=== PATIENT | male | born 1980 | race Caucasian/White ===

== ENCOUNTER 2019-08-28 19:07 | Emergency (ER) | payer MEDICARE, MEDICAID, SELFPAY ==
[2019-08-28 19:20] VITALS: BP 112/73; PULSE 85; RESP 17; TEMP 36.8; O2SAT 99; BMI 22.1
[2019-08-28 21:01] LABS: Urine Appearance Cloudy (CLEAR); Urine Color Dark Yellow (Yellow)
[2019-08-28 21:02] LABS: Add Urine Microscopic? YES; Bilirubin Urine Neg (NEGATIVE); Blood Urine 3+ (Negative); Glucose Urine UA Norm (Normal); Ketones Urine Negative (Negative); Leukocyte Esterase Urine Negative (Negative); Nitrate Urine Negative (Negative); Protein Urine Neg (Negative); Urobilinogen Urine Norm (Negative); pH Urine 7 (5-7)
[2019-08-28 21:03] LABS: Add Urine Culture? Yes; Bacteria Urine 4+; Mucus Urine TRACE; RBC Urine TOO NUMEROUS TO CNT /hpf (0-2)
--- NOTE | 2019-08-28 21:24 | ED_ITS ---
Entered by Angelica Guaman, acting as scribe for Meme Reyes HPI - Male Genitourinary General: Chief complaint: Urogenital-Male Stated complaint: blood in urine/groin pain Time Seen by Provider: 08/28/19 21:24 Source: patient Mode of arrival: ambulatory Limitations: no limitations History of Present Illness: HPI Narrative: 38 yo Male presents to ED with complaint of right side flank pain. Pt states that when he woke up he urinated and there was blood in his urine. Pt states that he has not had any fever. MD Complaint: other (flank pain/hematuria) Onset (ago): hour(s) Duration: constant Location: right flank Severity scale (1-10): 8 Quality: aching Relieving factors: none Exacerbating factors: urination Associated symptoms: Reports hematuria and nausea; Deny fevers/chills or vomiting Review of Systems General: Reports: other (negative unless marked) Const: Denies: fever, chills, body aches, fatigue, malaise or diaphoresis Eyes: Denies: change in vision or blurry vision ENMT: Denies: throat pain, painful swallowing, hoarseness, ear pain, ear discharge, Change in hearing or nasal discharge Card: Denies: chest pain, palpitations, irregular heart rhythm, syncope, pre- syncope, shortness of breath on exertion or shortness of breath when lying down Resp: Denies: shortness of breath, productive cough, non-productive cough, wheezing, coughing up blood or chest congestion GI: Reports: nausea; Denies: vomiting : Reports: flank pain and blood in urine Musc: Denies: neck pain, back pain, extremity pain, extremity swelling, joint pain, joint swelling, joint warmth or joint stiffness Skin/Breast: Denies: rash, skin tenderness or yellow skin Neuro: Denies: headache, numbness in extremities, weakness in extremities, changes in sensation, lack of coordination, difficulty walking, dizziness, vertigo or confusion Endo: Denies: excessive thirst, tired all the time, cold intolerance, excessive sweating, flushing or hot flashes Rishabh/Lymph: Denies: easy bruising, easy bleeding, petechiae or enlarged lymph nodes All/Imm: Denies: hives, throat swelling, tongue swelling, facial swelling or acute wheezing PFS ED PFSH: Surgical History (Updated 08/28/19 @ 21:30 by Angelica Guaman) History of vasectomy Social History Smoking and tobacco status: current every day smoker Physical Exam Const: COMMON NORMALS: no apparent distress, oriented x3, no limitations, healthy appearing and well nourished EXAM LIMITATIONS: no altered mental status GENERAL APPEARANCE: cooperative, well kempt and well developed ORIENTATION/CONSCIOUSNESS: Yes awake HENMT: COMMON NORMALS: normocephalic, head/scalp atraumatic, hearing grossly normal bilaterally, external ears normal, EAC's normal, external nose normal and moist oral mucous membranes HEAD & SCALP: normal to inspection, normocephalic and atraumatic FACE & SINUS: normal facial exam and face symmetric NOSE: external nose normal and nares normal EXTERNAL EAR: Yes external ears normal EXTERNAL AUDITORY CANAL: EAC's normal MOUTH: oral and palatal mucosa normal and tongue normal Eye: COMMON NORMALS: PERRL, EOMs intact bilaterally, conjunctivae normal and no scleral icterus GENERAL EYE: normal appearance of both eyes and normal light reflex CONJUNCTIVA: Yes conjunctivae normal SCLERA: sclerae normal CORNEA: Yes corneas normal PUPIL: Yes PERRL DIRECT OPHTHALMOSCOPY: Yes normal light reflex Neck/C-Spine: COMMON NORMALS: full ROM, no lymphadenopathy, supple, no meningeal signs and no JVD GENERAL: Yes normal visual inspection and Yes trachea midline CERVICAL SPINE: Yes cervical ROM normal Chest: COMMONS NORMALS: inspection of chest normal and palpation of chest normal Resp: COMMON NORMALS: normal respiratory effort, no retractions, no use of accessory muscles and clear to auscultation bilaterally EFFORT & INSPECTION: Yes able to speak in complete sentences AUSCULTATION: clear to auscultation bilaterally Cardio: COMMON NORMALS: no JVD, regular rate, regular rhythm, S1 normal heart sound, S2 normal heart sound, no gallops, no clicks, no murmurs and no rub JUGULAR VENOUS DISTENTION: no JVD RATE: regular rate RHYTHM: regular rhythm HEART SOUNDS: S1 normal and S2 normal GI: COMMON NORMALS: soft to palpation, non-tender, no hepatosplenomegaly and no masses INSPECTION: Yes normal to inspection PALPATION: Yes soft and Yes no hepatosplenomegaly : COMMON NORMALS: Yes no CVA tenderness BLADDER/KIDNEY EXAM: Yes no CVA tenderness Back/Pelvis: COMMON NORMALS: no CVA tenderness, thoracic and lumbar spine normal to inspection, no thoracic nor lumbar tenderness and thoraco-lumbar ROM normal Extremity: COMMON NORMALS: normal to inspection, full ROM, normal capillary refill, no joint enlargement, no clubbing, cyanosis or edema and no calf tenderness Neuro: COMMON NORMALS: oriented x3, CN's II-XII intact bilaterally, moves all extremities, no focal motor deficits and no sensory deficits noted MENINGEAL SIGNS: Yes no meningeal signs Psych: COMMON NORMALS: mental status grossly normal, thought process normal, cooperative, affect normal, speech normal and activity/motor behavior normal APPEARANCE: Yes well kempt SPEECH: Yes normal speech THOUGHT PROCESS: normal thought process Skin: COMMON NORMALS: no rashes or lesions noted, skin turgor normal, no jaundice, no petechiae and no mottling GENERAL SKIN EXAM: no rashes or lesions noted and turgor normal Course Vital Signs: Vital signs: Vital Signs Temperature 98.2 F 08/28/19 19:20 Pulse Rate 85 08/28/19 19:20 Respiratory Rate 16 08/28/19 22:11 Blood Pressure 112/73 08/28/19 19:20 Pulse Oximetry 99 08/28/19 19:20 MDM - Male MDM Narrative: Medical decision making narrative: Mr. Arroyo is a nice 38-year-old male who comes in for flank pain and hematuria. His flank pain is almost completely resolved and his hematuria has cleared. There is evidence of stones in his kidneys but nothing in his ureters or bladder. It is possible he has passed a small stone through. From further history it sounds as though he is done this at home before without any evaluation by Dr. I have informed him though he will need to follow-up with Dr. Miguel and he agrees to do so. He agrees to return should he develop fever, vomiting or increased pain. At this time he is ready to go home. Lab Data: Attestation: I reviewed the patient's lab results. Labs: Lab Results 08/28/19 08/28/19 08/28/19 Range/Units 19:17 21:54 21:54 WBC 8.0 (4.0-10.0) 10^3/ uL RBC 4.76 (4.1-5.3) 10^6/u L Hgb 14.5 (11.7-16.6) g/dL Hct 44.5 (42.0-52.0) % MCV 93.5 (80-94) fL MCH 30.5 (28.0-34.0) pg MCHC 32.6 (30.0-36.0) g/dL RDW 12.5 (12.1-15.1) % Plt Count 240 (130-400) 10^3/c mm MPV 9.5 (7.4-10.4) fL Neut % (Auto) 57.6 % Lymph % (Auto) 31.9 % [place] % (Auto) 7.2 % Eos % (Auto) 2.6 % Baso % (Auto) 0.5 % Neut # (Auto) 4.6 (1.8-7.7) 10^3/u L Lymph # (Auto) 2.6 (0.8-4.8) 10^3/u L [place] # (Auto) 0.6 (0.2-0.9) 10^3/u L Eos # (Auto) 0.2 (0.0-0.8) 10^3/u L Baso # (Auto) 0.0 (0.0-0.1) 10^3/u L Nucleated RBC % (a uto) 0 % Nucleated RBCs # 0.0 /100WBC Sodium 140 (136-145) mmol/L Potassium 4.3 (3.5-5.1) mmol/L Chloride 99 (98-107) mmol/L Carbon Dioxide 30 H (22-29) mmol/L Anion Gap 15.3 (5-19) BUN 20 (6-20) mg/dL Creatinine 1.1 (0.7-1.2) mg/dL GFR Calculation 74.9 L (90-130) mL/min Glucose 103 (65-115) mg/dL Calculated Osmolal ity 287 (285-295) mOsm/k g Calcium 10.2 (8.5-10.5) mg/dL Total Bilirubin 0.4 (0.15-1.2) mg/dL AST 23 (0-40) U/L ALT 33 (0-41) U/L Alkaline Phosphata se 58 (40-130) IU/L Total Protein 6.8 (6.6-8.7) g/dL Albumin 4.3 (3.5-5.2) g/dL Globulin 2.5 (1.3-4.6) g/dL Lipase 25 (13-60) U/L Urine Color Dark yellow (Yellow) Urine Appearance Cloudy (CLEAR) Urine pH 7 (5-7) Ur Specific Gravit y 1.010 (1.005-1.030) Urine Protein Neg (Negative) Urine Glucose (UA) Norm (Normal) Urine Ketones Negative (Negative) Urine Blood 3+ H (Negative) Urine Nitrate Negative (Negative) Urine Bilirubin Neg (NEGATIVE) Urine Urobilinogen Norm (Negative) mg/dL Ur Leukocyte Mela ase Negative (Negative) Urine RBC Too numerous to c nt H (0-2) /hpf Urine WBC 5-10 H (0-5) /hpf Ur Squamous Epith Cells None (0-5) Urine Bacteria 4+ H (NONE) Urine Mucus Trace Imaging Data: CT Abd/Pel: Radiologist's impression: [place] [id number] CT Scan Report Signed Patient: Joycelyn Arroyo #: [id number] : 1980Acct#:[id number] Age/Sex: 38 / MADM Date: 08/28/19 [facility] Attending Dr: Ordering Provider/Ordering MD: Meme Reyes DO Date of Service: 08/28/19 Procedure(s): CT kidney stone 38795 Accession Number(s): [id number] Report Number: [id number] PROCEDURE INFORMATION: Exam: CT Abdomen And Pelvis Without Contrast Exam date and time: 08/28/2019 9:28 PM Age: 38 years old Clinical indication: Abdominal pain; Right; Patient HX: Gross hematuria, RT flank pain x1 day, HX of kidney stones; Additional info: Flank/abdominal pain TECHNIQUE: Imaging protocol: Computed tomography of the abdomen and pelvis without contrast. Total DLP: 626.94 mGy-cm Radiation optimization: All CT scans at this facility use at least one of these dose optimization techniques: automated exposure control; mA and/or kV adjustment per patient size (includes targeted exams where dose is matched to clinical indication); or iterative reconstruction. COMPARISON: No relevant prior studies available. FINDINGS: Lungs: There are scattered calcified granulomas in both lung bases. Liver: The liver is normal. Gallbladder and bile ducts: The gallbladder is normal. There is no biliary dilation. Pancreas: The pancreas is unremarkable. Spleen: The spleen is unremarkable. Adrenals: The adrenal glands are unremarkable. Kidneys and ureters: Nonobstructive stones are seen in both kidneys. There is no hydronephrosis or ureteral dilation. Stomach and bowel: The stomach is unremarkable. The small bowel is nondilated. There is no sign of inflammation. Minimal distal descending colonic diverticulosis without evidence of diverticulitis. Appendix: The appendix is normal. Intraperitoneal space: There is no free air or significant intraperitoneal free fluid. Vasculature: The aorta is unremarkable. There is no aneurysm. Lymph nodes: There is no lymphadenopathy in the retroperitoneum, mesentery, pelvis or inguinal regions. Bladder: The urinary bladder is unremarkable. Reproductive: There is minimal central calcification in the prostate which is at the upper limit of normal in size. Bones/joints: The lumbar spine, pelvis and hips are unremarkable. Soft tissues: The abdominal wall is intact. CT/CT kidney stone 28740 IMPRESSION: Bilateral nonobstructive nephrolithiasis. No ureteral or bladder stones. Radiation Dose CTDIVOL = (mGy): DLP = 626.94 (mGy-cm) Dictated By:Ramin Moses MD Signed By:Ramin Mosesigned Date/Time:08/28/192206 DD/ 05 Discharge Plan Discharge Patient Disposition: Home, Self-Care Clinical Impression: Urinary tract infection Qualifiers: Urinary tract infection type: acute cystitis Hematuria presence: with hematuria Qualified Code(s): N30.01 - Acute cystitis with hematuria Condition: Stable Prescriptions: New Cipro 500 mg tablet 500 mg PO BID Qty: 20 RF: 0 Discharge Orders: Discharge Order (Routine); Ordered 08/28/19 Ordered By: Meme Reyes Referrals: Anish Miguel MD [Physician] - 1-3 days Discharge Diet: Advance as tolerated Discharge Activity: Increase activity as tolerated Patient Instructions: Urinary Tract Infection in Men (ED), Acute Hematuria (ED), Dysuria (ED) Activity Restrictions/Additional Instructions: Please return to the ER immediately for any of the signs or symptoms listed on your discharge instruction sheets, worsening/changing of your symptoms, you are not getting better as quickly as expected, or for ANY other cause or concerns. Be certain to follow-up with Dr. Miguel or the urologist of your choice for recheck and for further evaluation and care. Coding Level of Care Code ED Malted Milk Mixer for Chg Fwd Exam Comprehensive The documentation recorded by the Deniz mccabe Carmen, accurately reflects the service I personally performed and the decisions made by me, Meme Reyes Aug 28, 2019 19:07
--- NOTE | 2019-08-28 21:27 | CTR_ITS ---
PROCEDURE INFORMATION: Exam: CT Abdomen And Pelvis Without Contrast Exam date and time: 08/28/2019 9:28 PM Age: 38 years old Clinical indication: Abdominal pain; Right; Patient HX: Gross hematuria, RT flank pain x1 day, HX of kidney stones; Additional info: Flank/abdominal pain TECHNIQUE: Imaging protocol: Computed tomography of the abdomen and pelvis without contrast. Total DLP: 626.94 mGy-cm Radiation optimization: All CT scans at this facility use at least one of these dose optimization techniques: automated exposure control; mA and/or kV adjustment per patient size (includes targeted exams where dose is matched to clinical indication); or iterative reconstruction. COMPARISON: No relevant prior studies available. FINDINGS: Lungs: There are scattered calcified granulomas in both lung bases. Liver: The liver is normal. Gallbladder and bile ducts: The gallbladder is normal. There is no biliary dilation. Pancreas: The pancreas is unremarkable. Spleen: The spleen is unremarkable. Adrenals: The adrenal glands are unremarkable. Kidneys and ureters: Nonobstructive stones are seen in both kidneys. There is no hydronephrosis or ureteral dilation. Stomach and bowel: The stomach is unremarkable. The small bowel is nondilated. There is no sign of inflammation. Minimal distal descending colonic diverticulosis without evidence of diverticulitis. Appendix: The appendix is normal. Intraperitoneal space: There is no free air or significant intraperitoneal free fluid. Vasculature: The aorta is unremarkable. There is no aneurysm. Lymph nodes: There is no lymphadenopathy in the retroperitoneum, mesentery, pelvis or inguinal regions. Bladder: The urinary bladder is unremarkable. Reproductive: There is minimal central calcification in the prostate which is at the upper limit of normal in size. Bones/joints: The lumbar spine, pelvis and hips are unremarkable. Soft tissues: The abdominal wall is intact. CT/CT kidney stone [id number] IMPRESSION: Bilateral nonobstructive nephrolithiasis. No ureteral or bladder stones. Radiation Dose CTDIVOL = (mGy): DLP = 626.94 (mGy-cm)
[2019-08-28 22:05] LABS: Basophils % 0.5 %; Eosinophils # 0.2 10^3/uL (0.0-0.8); Eosinophils % 2.6 %; Hematocrit 44.5 % (42.0-52.0); Hemoglobin 14.5 g/dL (11.7-16.6); Lymphocytes # 2.6 10^3/uL (0.8-4.8); Lymphocytes % 31.9 %; Mean Corpuscular HGB Conc 32.6 g/dL (30.0-36.0); Mean Corpuscular Hemoglobin 30.5 pg (28.0-34.0); Mean Corpuscular Volume 93.5 fL (80-94); Mean Platelet Volume 9.5 fL (7.4-10.4); Monocytes # 0.6 10^3/uL (0.2-0.9); Monocytes % 7.2 %; Neutrophils # 4.6 10^3/uL (1.8-7.7); Neutrophils % 57.6 %; Nucleated Red Blood Cells % 0 %; Platelet Count 240 10^3/cmm (130-400); Red Blood Count 4.76 10^6/uL (4.1-5.3); Red Cell Distribution Width 12.5 % (12.1-15.1)
[2019-08-28] MEDS: sodium chloride 0.9% 1,000 ML 100 ML IV (22:05)
[2019-08-28 22:11] VITALS: RESP 16
[2019-08-28] MEDS: ondansetron 2 mg/ML SDV 2 mL 4 MG IVP (22:11)
[2019-08-28] MEDS: morphine 4 mg/mL SDV 1 mL IVP ×2 (22:11→22:43)
[2019-08-28 22:19] LABS: Alanine Aminotransferase 33 U/L (0-41); Albumin Level 4.3 g/dL (3.5-5.2); Alkaline Phosphatase 58 IU/L (40-130); Anion Gap 15.3 (5-19); Aspartate Amino Transferase 23 U/L (0-40); Blood Urea Nitrogen 20 mg/dL (6-20); Calcium 10.2 mg/dL (8.5-10.5); Carbon Dioxide 30 mmol/L (22-29); Chloride 99 mmol/L (98-107); Globulin 2.5 g/dL (1.3-4.6); Glomerular Filtration Rate 74.9 mL/min (90-130); Glucose 103 mg/dL (65-115); Lipase 25 U/L (13-60); Osmolality Calculated 287 mOsm/kg (285-295); Potassium 4.3 mmol/L (3.5-5.1); Sodium 140 mmol/L (136-145); Total Bilirubin 0.4 mg/dL (0.15-1.2); Total Protein 6.8 g/dL (6.6-8.7)
[2019-08-28] MEDS: ketorolac 30 mg/mL INJ 10 MG IVP (22:42)
[2019-08-28 22:43] VITALS: RESP 17; O2SAT 99
[2019-08-28 22:50] VITALS: BP 113/66; PULSE 62; RESP 18; O2SAT 100
--- NOTE | 2019-08-29 11:40 | DCPLANNER ---
manager books had message to schedule a follow up appointment for patient with Dr. Miguel. manager books called the office of Dr. Miguel, spoke with Lucina, gave clinic patients information. manager books was told that patients information would be printed and given to Ratna for review. Clinic will call patient with appointment information. manager books will call for appointment information.
--- NOTE | 2019-08-30 13:55 | DCPLANNER ---
Patient has a follow up appointment scheduled with Dr. Miguel on Sunday, September 22, 2019 at 8:00. Clinic called patient with appointment information.
--- NOTE | 2019-10-12 11:36 | DCPLANNER ---
state manager called the office of Dr. Miguel to confirm that a follow up appointment had been scheduled for patient with clinic. state manager spoke with Vira was told that patients appointment had been cancelled.
== END 2019-08-28 22:52 | disposition home or self-care (01) ==
PROVIDERS: Emergency Medicine; Emergency Provider Emergency Medicine
DX: N39.0 Urinary tract infection, site not specified (principal); F17.200 Nicotine dependence, unspecified, uncomplicated
CPT/HCPCS: 12345; 36415; 74176; 80053; 81001; 83690; 85025; 87086; 96361; 96374; 96375; 96376; 99282; 99283; J1885; J2270; J2405; J7030